=== PATIENT | female | born 1990 | race American Indian/Alaskan Native ===

== ENCOUNTER 2018-08-31 15:07 | Inpatient (IN) | payer OTHER ==
[~2018-08-31 15:07] MED LIST: Bupivacaine 0.25% 10 ML SDV ONE
[2018-08-31] MEDS ORDERED: Ampicillin 2 GM in Sodium Chloride 0.9% 100 ML IV ONE (15:26)
[2018-08-31] MEDS ORDERED: Ondansetron 4 MG/2 ML SDV IVPUSH PRN (15:26)
[2018-08-31] MEDS ORDERED: Nalbuphine 10 MG/1 ML Vial IVPUSH PRN (15:26)
[2018-08-31] MEDS ORDERED: Sodium Chloride 0.9% 10 ML Syringe FLUSH PRN (15:26)
[2018-08-31] MEDS ORDERED: Ampicillin 2 GM AdvVial IV ONE (15:26)
[2018-08-31] MEDS ORDERED: Lactated Ringers 1,000 ML ONE (15:26)
[2018-08-31] MEDS: Lactated Ringers 1,000 ML IV SCH ×2 (15:27→16:37)
[2018-08-31] MEDS ORDERED: Oxytocin/Lactated Ringers 10 UNIT/1,000 ML BAG IV SCH (15:30)
--- NOTE | 2018-08-31 15:39 | PCM.LDHP ---
L&D History of Present Illness - General Date of Service: 08/31/18 Admit Problem/Dx: Patient Status Order with Admit Dx/Problem 08/31/18 15:26 Patient Status [ADT] Routine Admission Diagnosis/Problem Admission Diagnosis/Problem Normal labor Source of Information: Patient History Limitations: Reports: No Limitations - History of Present Illness Introduction:: Patient is a 28 y/o at unknown gestational age, LMP sometime in November, who presents today in labor. Patient states she has had no care this . No ultrasounds or lab work done. Contractions started sometime today, she's uncertain when. No LOF or VB. Last was an uncomplicated at term. - Related Data Allergies/Adverse Reactions: Allergies Allergy/AdvReac Type Severity Reaction Status Date / Time No Known Allergies Allergy Verified 08/31/18 15:38 Home Medications: Home Meds Vit with Ca/FA/Iron [ Plus Iron] 1 each PO DAILY #100 tablet [Rx] Past Medical History [employer]ECUTIVE [employer]URITY History: Reports: , Spontaneous : 3 Para: 1 LMP (Approximate): - Past Surgical History GI Surgical History: Reports: Cholecystectomy Social & Family History - Tobacco Use Smoking Status *Q: Current Every Day Smoker - Alcohol Use Alcohol Use History: No - Recreational Drug Use Recreational Drug Type: Reports: Methamphetamine H&P Review of Systems - Review of Systems: Review Of Systems: See Below General: Reports: No Symptoms Pulmonary: Reports: No Symptoms Cardiovascular: Reports: No Symptoms Gastrointestinal: Reports: Abdominal Pain Genitourinary: Reports: No Symptoms Musculoskeletal: Reports: No Symptoms Psychiatric: Reports: No Symptoms Neurological: Reports: No Symptoms L&D Exam - Exam Exam: See Below - OB Specific Contraction Intensity: Moderate to Strong Movement: Active Heart Tones: Present Heart Tones per Min: 135 Heart Rate (FHR) Variability: Moderate (6-25 bmp) Presentation: Vertex - Castaneda Score Castaneda Score Cervix Position: Posterior Castaneda Score Consistency: Soft Castaneda Score Effacement: >80% Castaneda Score Dilation: > 5 cm Castaneda Score Infant's Station: -2 Catsaneda Score Total: 9 - Exam General: Alert, Oriented, Cooperative Lungs: Clear to Auscultation, Normal Respiratory Effort Cardiovascular: Regular Rate, Regular Rhythm GI/Abdominal Exam: Soft, Non-Tender Genitourinary: Normal external exam Extremities: Normal Inspection Skin: Warm, Dry, Intact - Problem List (1) Currently in third trimester with unknown gestational age SNOMED Code(s): 631026681, 201550449 ICD Code: Z34.93 - ENCNTR FOR SUPRVSN OF NORMAL PREG, UNSP, THIRD TRIMESTER Status: Acute Current Visit: Yes (2) No care in current SNOMED Code(s): 404753661 ICD Code: O09.30 - SUPRVSN OF PREG W INSUFFICIENT ANTENAT CARE, UNSP TRIMESTER Status: Acute Current Visit: Yes Qualifiers: Trimester: third trimester Qualified Code(s): O09.33 - Supervision of with insufficient care, third trimester (3) History of drug use SNOMED Code(s): 589330755 ICD Code: Z87.898 - PERSONAL HISTORY OF OTHER SPECIFIED CONDITIONS Status: Acute Current Visit: Yes Problem List Initiated/Reviewed/Updated: Yes Orders Last 24hrs: Active Orders 24 hr Category Date Time Status Patient Status [ADT] Routine ADT 08/31/18 15:26 Active Activity as Tolerated [RC] PFP Care 08/31/18 15:26 Active Communication Order [RC] ASDIRECTED Care 08/31/18 15:26 Active Heart Tones [RC] ASDIRECTED Care 08/31/18 15:26 Active Non Stress Test [RC] PER UNIT ROUTINE Care 08/31/18 15:26 Active Notify Provider [RC] PFP Care 08/31/18 15:26 Active Notify Provider [RC] PRN Care 08/31/18 15:26 Active Peripheral IV Care [RC] . DIRECTED Care 08/31/18 15:26 Active Vital Signs [RC] PER UNIT ROUTINE Care 08/31/18 15:26 Active Regular Diet [DIET] Diet 08/31/18 Lunch Active CBC W/O DIFF,HEMOGRAM [HEME] Routine Lab 08/31/18 15:26 Ordered DRUG SCREEN, URINE REFLEX [URCHEM] Routine Lab 08/31/18 15:26 Ordered GROUP B STREP BY PCR [MOLEC] Routine Lab 08/31/18 15:28 Ordered HEPATITIS B SURFACE AG [CHEM] Routine Lab 08/31/18 15:26 Ordered HEPATITIS C ANTIBODY [CHEM] Routine Lab 08/31/18 15:26 Ordered HIV RAPID SCREEN RLFX COMFIRM [CHEM] Routine Lab 08/31/18 15:26 Ordered RAPID PLASMA REAGIN,RPR [CHEM] Routine Lab 08/31/18 15:26 Ordered RUBELLA ANTIBODY IGG [CHEM] Routine Lab 08/31/18 15:26 Ordered TYPE AND SCREEN [BBK] Routine Lab 08/31/18 15:26 Ordered Ampicillin 1 gm Med 08/31/18 15:30 Ordered Sodium Chloride 0.9% [Normal Saline] 100 ml IV Q4H Ampicillin 2 gm Med 08/31/18 15:26 Active Sodium Chloride 0.9% [Normal Saline] 100 ml IV ONETIME Lactated Ringers [Ringers, Lactated] 1,000 ml Med 08/31/18 15:30 Active IV ASDIRECTED Nalbuphine [Nubain] Med 08/31/18 15:26 Ordered 10 mg IVPUSH Q2H PRN Ondansetron [Zofran] Med 08/31/18 15:26 Ordered 4 mg IVPUSH Q4H PRN Oxytocin/Lactated Ringers [Pitocin in LR 10 Units/1,000 Med 08/31/18 15:30 Active ML] 10 unit in 1,000 ml IV .CONTINUOUS Sodium Chloride 0.9% [Saline Flush] Med 08/31/18 15:26 Ordered 10 ml FLUSH ASDIRECTED PRN Electronic Heart Tones Ext w TOCO [WOMSER] Oth 08/31/18 15:26 Ordered Routine Electronic Heart Tones Internal [WOMSER] Per Unit Oth 08/31/18 15:26 Ordered Routine Peripheral IV Insertion Adult [OM.PC] Routine Oth 08/31/18 15:26 Ordered Resuscitation Status Routine Resus Stat 08/31/18 15:26 Ordered Medication Orders Ampicillin Sodium 2 gm/ Sodium (Chloride) 100 mls @ 200 mls/hr IV ONETIME ONE Stop: 08/31/18 15:55 Ampicillin Sodium 1 gm/ Sodium (Chloride) 100 mls @ 200 mls/hr IV Q4H UMAIR Lactated Ringer's (Ringers, Lactated) 1,000 mls @ 100 mls/hr IV ASDIRECTED UMAIR Oxytocin/Lactated Ringer's (Pitocin In Lr 10 Units/1,000 Ml) 10 unit in 1,000 mls @ 500 mls/hr IV .CONTINUOUS UMAIR Nalbuphine HCl (Nubain) 10 mg IVPUSH Q2H PRN PRN Reason: Pain Ondansetron HCl (Zofran) 4 mg IVPUSH Q4H PRN PRN Reason: Nausea/Vomiting Sodium Chloride (Saline Flush) 10 ml FLUSH ASDIRECTED PRN PRN Reason: Keep Vein Open Assessment/Plan Comment:: 28 y/o at unknown gestational age, but estimated to be full term by last period in November, presents in labor * New ob labs to be done * GBS to be done. Given uncertain gestational age will start Ampicillin * Patient states she "doesn't really" have a history of drug use, but per last delivery notes has a reported history of methamphetamine use. UDS to be done. * Social Work consult pending * US to evaluate for previa/rough estimation of due date * Pain management per patient preference * Anticipate
[2018-08-31] MEDS ORDERED: fentaNYL 100 MCG/2 ML SDV IVPUSH ONE (16:07)
[2018-08-31] MEDS ORDERED: Bupivacaine/fentaNYL/NS 100 ML Bag EPIDUR SCH (16:15)
--- NOTE | 2018-08-31 16:41 | US ---
Limited obstetrical ultrasound: Multiple real-time images were obtained transabdominally. Comparison: No previous exam. Dates: Current ultrasound: [facility] 09/27/18, gestational age 36 weeks 1 day presentation: Cephalic Placenta: Right lateral with no findings of placenta previa Amniotic fluid: SUYAPA 7.1 cm Measurements: BPD: 9.04 cm - 36 weeks 5 days Head circumference: 31.59 cm - 35 weeks 4 days Abdominal circumference: 32.51 cm - 36 weeks 3 days Femur length: 6.99 cm - 35 weeks 6 days Estimated weight: 135 bpm Cervical length: Not seen due to baby position, not measured Impression: 1. Single intrauterine fetus currently cephalic in presentation. Dates as noted above. 2. No complicating process is identified by ultrasound at this time. Diagnostic code #1
--- NOTE | 2018-08-31 17:03 | PCM.PREANE ---
Preanesthetic Assessment - Anesthesia/Transfusion/Family Hx Anesthesia History: Prior Anesthesia Without Reaction Family History of Anesthesia Reaction: No Transfusion History: No Prior Transfusion(s) Intubation History: Unknown - Review of Systems General: No Symptoms Pulmonary: No Symptoms, Cough Cardiovascular: No Symptoms Gastrointestinal: No Symptoms Neurological: No Symptoms Other: Reports: None - Physical Assessment O2 Sat by Pulse Oximetry: 98 Respiratory Rate: 12 Vital Signs: Last Vital Signs Temp 36.4 C 08/31/18 15:26 Pulse 68 08/31/18 15:26 Resp 12 08/31/18 15:26 BP 124/69 08/31/18 15:26 Pulse Ox 98 08/31/18 15:26 Height: 1.7 m Weight: 83.915 kg Mental Status: Alert & Oriented x3 Airway Class: Mallampati = 1 Dentition: Reports: Normal Dentition ROM/Head Extension: Full Lungs: Clear to Auscultation, Normal Respiratory Effort Cardiovascular: Regular Rate, Regular Rhythm - Lab Values: Laboratory Last Values WBC 12.27 K/mm3 (3.98-10.04) H 08/31/18 15:38 RBC 4.75 M/mm3 (3.98-5.22) 08/31/18 15:38 Hgb 12.7 gm/L (11.2-15.7) D 08/31/18 15:38 Hct 39.4 % (34.1-44.9) 08/31/18 15:38 MCV 82.9 fl (79.4-94.8) 08/31/18 15:38 MCH 26.7 pg (25.6-32.2) 08/31/18 15:38 MCHC 32.2 g/dl (32.2-35.5) 08/31/18 15:38 RDW Std Deviation 44.7 fL (36.4-46.3) 08/31/18 15:38 Plt Count 352 K/mm3 (182-369) D 08/31/18 15:38 MPV 9.5 fl (9.4-12.3) 08/31/18 15:38 Hepatitis C Antibody Negative (NEGATIVE) 08/31/18 15:38 HIV-1 Ab Rapid Screen Negative (NEGATIVE) 08/31/18 15:38 - Allergies Allergies/Adverse Reactions: Allergies Allergy/AdvReac Type Severity Reaction Status Date / Time No Known Allergies Allergy Verified 08/31/18 15:38 - Anesthesia Plan Pre-Op Medication Ordered: None - Acknowledgements Anesthesia Type Planned: Epidural Pt an Appropriate Candidate for the Planned Anesthesia: Yes Alternatives and Risks of Anesthesia Discussed w Pt/Guardian: Yes Pt/Guardian Understands and Agrees with Anesthesia Plan: Yes PreAnesthesia Questionnaire [employer] REFINING [employer]ER History: Reports: , Spontaneous Other OB/BYN History: no care, poor historian - Past Surgical History GI Surgical History: Reports: Cholecystectomy - SUBSTANCE USE Smoking Status *Q: Current Every Day Smoker Tobacco Use Within Last Twelve Months: Cigarettes Second Hand Smoke Exposure: Yes Recreational Drug Use History: Yes Recreational Drug Type: Reports: Methamphetamine - HOME MEDS Home Medications: Home Meds Vit with Ca/FA/Iron [ Plus Iron] 1 each PO DAILY #100 tablet [Rx] - CURRENT (IN HOUSE) MEDS Current Meds: Current Medications Fentanyl/Bupivacaine HCl (Fentanyl/Bupivacaine/Ns 2 Mcg-0.125% 100 Ml) 100 ml EPIDUR ASDIRECTED PENDING SALE TO [facility] Ampicillin Sodium 1 gm/ Sodium (Chloride) 100 mls @ 200 mls/hr IV Q4H UMAIR Lactated Ringer's (Ringers, Lactated) 1,000 mls @ 100 mls/hr IV ASDIRECTED PENDING SALE TO [facility] Last Admin: 08/31/18 16:37 Dose: 100 mls/hr Oxytocin/Lactated Ringer's (Pitocin In Lr 10 Units/1,000 Ml) 10 unit in 1,000 mls @ 500 mls/hr IV .CONTINUOUS PENDING SALE TO [facility] Nalbuphine HCl (Nubain) 10 mg IVPUSH Q2H PRN PRN Reason: Pain Ondansetron HCl (Zofran) 4 mg IVPUSH Q4H PRN PRN Reason: Nausea/Vomiting Sodium Chloride (Saline Flush) 10 ml FLUSH ASDIRECTED PRN PRN Reason: Keep Vein Open Discontinued Medications Ampicillin Sodium (Ampicillin) Confirm Administered Dose 2 gm IV .STK-MED ONE Stop: 08/31/18 15:27 Last Admin: 08/31/18 15:39 Dose: Not Given Fentanyl (Sublimaze) 100 mcg IVPUSH ONETIME ONE Stop: 08/31/18 16:08 Ampicillin Sodium 2 gm/ Sodium (Chloride) 100 mls @ 200 mls/hr IV ONETIME ONE Stop: 08/31/18 15:55 Last Admin: 08/31/18 15:27 Dose: 200 mls/hr Lactated Ringer's (Ringers, Lactated) Confirm Administered Dose 1,000 mls @ as directed .ROUTE .STK-MED ONE Stop: 08/31/18 15:27 Last Admin: 08/31/18 15:39 Dose: Not Given
--- NOTE | 2018-08-31 17:04 | PCM.POSTAN ---
POST ANESTHESIA ASSESSMENT - MENTAL STATUS Mental Status: Alert - RESPIRATORY Respiratory Status: Respiratory Rate WNL, Airway Patent - CARDIOVASCULAR CV Status: Pulse Rate WNL - GASTROINTESTINAL GI Status: No Symptoms - POST OP HYDRATION Hydration Status: Adequate & Stable
[2018-08-31] MEDS ORDERED: Ampicillin 1 GM in Sodium Chloride 0.9% 100 ML IV SCH (18:00)
--- NOTE | 2018-08-31 18:05 | PCM.DEL ---
L & D Note - General Info Date of Service: 08/31/18 - Delivery Note Labor: Spontaneous Delivery Outcome: Livebirth Delivery Method: Spontaneous Vaginal Delivery-Single Delivery Mode: Spontaneous Presentation: Right Occiput Anterior (SUNSHINE) Nuchal Cord: None Anesthesia Type: Epidural Amniotic Fluid Description: Clear Episiotomy Type: None Laceration: Labial Suture type: Vicryl Suture size: 4-0 Placenta: Intact, Spontaneous Cord: 3 Vessels Estimated Blood Loss: 200 [place]: Bulb Syringe, Stimulated, Warmed, [place] Used, Warmer Used Delivery Comments (Free Text/Narrative):: Patient found to be complete and began pushing. With maternal pushing effort head delivered from an SUNSHINE presentation. No nuchal cord present. With gentle downward traction the shoulders and body delivered. placed on maternal abdomen. Cord clamped and cut. Cord blood obtained. Placenta allowed time to separate and expelled intact. Inspection showed small left sided labia tear which was repaired with a running 4-0 vicryl - General Info Date of Service: 08/31/18 - Patient Data Vitals - Most Recent: Last Vital Signs Temp 36.4 C 08/31/18 15:26 Pulse 68 08/31/18 15:26 Resp 12 08/31/18 17:03 BP 124/69 08/31/18 15:26 Pulse Ox 98 08/31/18 17:03 Weight - Most Recent: 83.915 kg I&O - Last 24 Hours: Intake & Output 08/31/18 08/31/18 08/31/18 06:59 14:59 22:59 Intake Total 1500 Balance 1500 Lab Results Last 24 Hours: Laboratory Results - last 24 hr 08/31/18 08/31/18 08/31/18 Range/Units 15:26 15:38 15:38 WBC 12.27 H (3.98-10.04) K/mm3 RBC 4.75 (3.98-5.22) M/mm3 Hgb 12.7 D (11.2-15.7) gm/L Hct 39.4 (34.1-44.9) % MCV 82.9 (79.4-94.8) fl MCH 26.7 (25.6-32.2) pg MCHC 32.2 (32.2-35.5) g/dl RDW Std Deviation 44.7 (36.4-46.3) fL Plt Count 352 D (182-369) K/mm3 MPV 9.5 (9.4-12.3) fl Urine Opiates Screen Negative (XCJLER=996) Ur Buprenorphine Scrn Negative (CUTOFF=10) Ur Oxycodone Screen Negative (MEK6UI=309) Urine Methadone Screen Negative (JDUUIT=986) Ur Propoxyphene Screen Negative (JZJRTU=222) Ur Barbiturates Screen Negative (LMPAFP=465) Ur Tricyclics Screen Negative (RGHJUY=182) Ur Phencyclidine Scrn Negative (CUTOFF=25) Ur Amphetamine Screen Presumptive positive H (RVEHVY=253) U Methamphetamines Scrn Presumptive positive H (ORVUOM=688) U Benzodiazepines Scrn Negative (ZTAEXS=584) U Cocaine Metab Screen Negative (QJQTSI=712) U Marijuana (THC) Screen Presumptive positive H (CUTOFF=50) Hepatitis C Antibody Negative (NEGATIVE) HIV-1 Ab Rapid Screen Negative (NEGATIVE) Med Orders - Current: Current Medications Fentanyl/Bupivacaine HCl (Fentanyl/Bupivacaine/Ns 2 Mcg-0.125% 100 Ml) 100 ml EPIDUR ASDIRECTED UMAIR Last Admin: 08/31/18 17:45 Dose: 100 ml Ampicillin Sodium 1 gm/ Sodium (Chloride) 100 mls @ 200 mls/hr IV Q4H UMAIR Lactated Ringer's (Ringers, Lactated) 1,000 mls @ 100 mls/hr IV ASDIRECTED UMAIR Last Admin: 08/31/18 16:37 Dose: 100 mls/hr Oxytocin/Lactated Ringer's (Pitocin In Lr 10 Units/1,000 Ml) 10 unit in 1,000 mls @ 500 mls/hr IV .CONTINUOUS UMAIR Last Admin: 08/31/18 17:48 Dose: 500 mls/hr Nalbuphine HCl (Nubain) 10 mg IVPUSH Q2H PRN PRN Reason: Pain Ondansetron HCl (Zofran) 4 mg IVPUSH Q4H PRN PRN Reason: Nausea/Vomiting Sodium Chloride (Saline Flush) 10 ml FLUSH ASDIRECTED PRN PRN Reason: Keep Vein Open Discontinued Medications Ampicillin Sodium (Ampicillin) Confirm Administered Dose 2 gm IV .STK-MED ONE Stop: 08/31/18 15:27 Last Admin: 08/31/18 15:39 Dose: Not Given Fentanyl (Sublimaze) 100 mcg IVPUSH ONETIME ONE Stop: 08/31/18 16:08 Last Admin: 08/31/18 17:45 Dose: 100 mcg Ampicillin Sodium 2 gm/ Sodium (Chloride) 100 mls @ 200 mls/hr IV ONETIME ONE Stop: 08/31/18 15:55 Last Admin: 08/31/18 15:27 Dose: 200 mls/hr Lactated Ringer's (Ringers, Lactated) Confirm Administered Dose 1,000 mls @ as directed .ROUTE .STK-MED ONE Stop: 08/31/18 15:27 Last Admin: 08/31/18 15:39 Dose: Not Given - Problem List & Annotations (1) Currently in third trimester with unknown gestational age SNOMED Code(s): 386565250, 545180513 Code(s): Z34.93 - ENCNTR FOR SUPRVSN OF NORMAL PREG, UNSP, THIRD TRIMESTER Status: Acute Current Visit: Yes (2) No care in current SNOMED Code(s): 889999707 Code(s): O09.30 - SUPRVSN OF PREG W INSUFFICIENT ANTENAT CARE, UNSP TRIMESTER Status: Acute Current Visit: Yes Qualifiers: Trimester: third trimester Qualified Code(s): O09.33 - Supervision of with insufficient care, third trimester (3) History of drug use SNOMED Code(s): 012568086 Code(s): Z87.898 - PERSONAL HISTORY OF OTHER SPECIFIED CONDITIONS Status: Acute Current Visit: Yes (4) Vaginal delivery SNOMED Code(s): 870233994 Code(s): O80 - ENCOUNTER FOR FULL-TERM UNCOMPLICATED DELIVERY Status: Acute Current Visit: Yes - Problem List Review Problem List Initiated/Reviewed/Updated: Yes - My Orders Last 24 Hours: My Active Orders 08/31/18 15:26 Patient Status [ADT] Routine Activity as Tolerated [RC] PFP Communication Order [RC] ASDIRECTED Heart Tones [RC] ASDIRECTED Non Stress Test [RC] PER UNIT ROUTINE Notify Provider [RC] PFP Notify Provider [RC] PRN Peripheral IV Care [RC] . DIRECTED Vital Signs [RC] PER UNIT ROUTINE AMPHET/METH EXT CONF (GCMS) Routine AMPHETAMINES, CONF, UR Routine CANNABINOID (THC) CONFIRM, UR Routine Nalbuphine [Nubain] 10 mg IVPUSH Q2H PRN Ondansetron [Zofran] 4 mg IVPUSH Q4H PRN Sodium Chloride 0.9% [Saline Flush] 10 ml FLUSH ASDIRECTED PRN Electronic Heart Tones Ext w TOCO [WOMSER] Routine Electronic Heart Tones Internal [WOMSER] Per Unit Routine Peripheral IV Insertion Adult [OM.PC] Routine Resuscitation Status Routine 08/31/18 15:30 GROUP B STREP BY PCR [MOLEC] Routine Lactated Ringers [Ringers, Lactated] 1,000 ml IV ASDIRECTED Oxytocin/Lactated Ringers [Pitocin in LR 10 Units/1,000 ML] 10 unit in 1,000 ml IV .CONTINUOUS 08/31/18 15:38 HEPATITIS B SURFACE AG [CHEM] Routine RAPID PLASMA REAGIN,RPR [CHEM] Routine RUBELLA ANTIBODY IGG [CHEM] Routine TYPE AND SCREEN [BBK] Routine 08/31/18 15:57 Consult to Case Management/Life Science Research Assistant [CONS] Routine 08/31/18 18:00 Ampicillin 1 gm Sodium Chloride 0.9% [Normal Saline] 100 ml IV Q4H 08/31/18 Lunch Regular Diet [DIET] - Assessment Assessment:: 28 y/o G3 now P2 PPD#0 from - Plan Plan:: * Routine cares * Breast feeding * UDS positive, SW to be involved * Discharge home in 1-2 days
[2018-08-31] MEDS ORDERED: Lanolin 100% Cream 7 GM Tube TOP PRN (18:32)
[2018-08-31] MEDS ORDERED: Benzocaine/Menthol 20%-0.5% Spray 56 GM Canister TOP PRN (18:32)
[2018-08-31] MEDS ORDERED: Acetaminophen 325 MG Tab PO PRN (18:32)
[2018-08-31] MEDS ORDERED: Witch Hazel Medicated Pads 40/Jar TOP PRN (18:32)
[2018-08-31] MEDS ORDERED: Docusate Sodium 100 MG Cap PO PRN (18:32)
[2018-08-31] MEDS: Ibuprofen 600 MG Tab PO PRN (23:59)
--- NOTE | 2018-09-01 07:41 | PCM48HPAN ---
Post Anesthesia Note - EVALUATION WITHIN 48HRS OF ANESTHETIC Vital Signs in Normal Range: Yes Patient Participated in Evaluation: Yes Respiratory Function Stable: Yes Airway Patent: Yes Cardiovascular Function Stable: Yes Hydration Status Stable: Yes Pain Control Satisfactory: Yes Nausea and Vomiting Control Satisfactory: Yes Mental Status Recovered: Yes Pulse Rate: 64 Resp Rate: 16 Temperature: 36.7 C Blood Pressure: 101/67
--- NOTE | 2018-09-01 07:56 | PCM.PNPP ---
- General Info Date of Service: 09/01/18 Functional Status: Reports: Pain Controlled, Tolerating Diet, Ambulating, Urinating - Review of Systems General: Reports: No Symptoms Pulmonary: Reports: No Symptoms Cardiovascular: Reports: No Symptoms Gastrointestinal: Reports: No Symptoms Genitourinary: Reports: No Symptoms Musculoskeletal: Reports: No Symptoms Neurological: Reports: No Symptoms - Patient Data Vital Signs - Most Recent: Last Vital Signs Temp 36.7 C 09/01/18 07:41 Pulse 64 09/01/18 07:41 Resp 16 09/01/18 07:41 BP 101/67 09/01/18 07:41 Pulse Ox 98 09/01/18 02:37 Weight - Most Recent: 83.915 kg I&O - Last 24 Hours: Intake & Output 08/31/18 09/01/18 09/01/18 22:59 06:59 14:59 Intake Total 1740 Balance 1740 Lab Results - Last 24 Hours: Laboratory Results - last 24 hr 08/31/18 08/31/18 08/31/18 Range/Units 15:26 15:38 15:38 WBC 12.27 H (3.98-10.04) K/mm3 RBC 4.75 (3.98-5.22) M/mm3 Hgb 12.7 D (11.2-15.7) gm/L Hct 39.4 (34.1-44.9) % MCV 82.9 (79.4-94.8) fl MCH 26.7 (25.6-32.2) pg MCHC 32.2 (32.2-35.5) g/dl RDW Std Deviation 44.7 (36.4-46.3) fL Plt Count 352 D (182-369) K/mm3 MPV 9.5 (9.4-12.3) fl Urine Opiates Screen Negative (UPPLIX=628) Ur Buprenorphine Scrn Negative (CUTOFF=10) Ur Oxycodone Screen Negative (SQQ3QY=097) Urine Methadone Screen Negative (ZPOVFX=713) Ur Propoxyphene Screen Negative (KTDVZI=916) Ur Barbiturates Screen Negative (QDMRCX=414) Ur Tricyclics Screen Negative (LKJKLJ=810) Ur Phencyclidine Scrn Negative (CUTOFF=25) Ur Amphetamine Screen Presumptive positive H (VCUGRE=458) U Methamphetamines Scrn Presumptive positive H (ZAEGCT=573) U Benzodiazepines Scrn Negative (ZFSSSV=514) U Cocaine Metab Screen Negative (SWQNQF=901) U Marijuana (THC) Screen Presumptive positive H (CUTOFF=50) Hepatitis C Antibody Negative (NEGATIVE) HIV-1 Ab Rapid Screen Negative (NEGATIVE) Blood Type Gel Antibody Screen 08/31/18 Range/Units 15:38 WBC (3.98-10.04) K/mm3 RBC (3.98-5.22) M/mm3 Hgb (11.2-15.7) gm/L Hct (34.1-44.9) % MCV (79.4-94.8) fl MCH (25.6-32.2) pg MCHC (32.2-35.5) g/dl RDW Std Deviation (36.4-46.3) fL Plt Count (182-369) K/mm3 MPV (9.4-12.3) fl Urine Opiates Screen (AZXSFC=454) Ur Buprenorphine Scrn (CUTOFF=10) Ur Oxycodone Screen (DIT5XC=045) Urine Methadone Screen (ZAPABL=228) Ur Propoxyphene Screen (QULNRE=555) Ur Barbiturates Screen (PMUAIF=363) Ur Tricyclics Screen (QWGBLF=666) Ur Phencyclidine Scrn (CUTOFF=25) Ur Amphetamine Screen (NLXJLD=577) U Methamphetamines Scrn (FNTQIH=524) U Benzodiazepines Scrn (CLCLNB=551) U Cocaine Metab Screen (WCKLSM=599) U Marijuana (THC) Screen (CUTOFF=50) Hepatitis C Antibody (NEGATIVE) HIV-1 Ab Rapid Screen (NEGATIVE) Blood Type A POSITIVE Gel Antibody Screen Negative Med Orders - Current: Current Medications Acetaminophen (Tylenol) 650 mg PO Q4H PRN PRN Reason: mild pain or fever Benzocaine/Menthol (Dermoplast Pain Relief [place]) 0 gm TOP ASDIRECTED PRN PRN Reason: Perineal Comfort Measure Last Admin: 09/01/18 00:00 Dose: 1 canister Docusate Sodium (Colace) 100 mg PO BID PRN PRN Reason: Constipation Emollient Ointment (Lansinoh Hpa) 0 gm TOP ASDIRECTED PRN PRN Reason: Sore Nipples Ibuprofen (Motrin) 600 mg PO Q6H PRN PRN Reason: Mild pain or fever Last Admin: 08/31/18 23:59 Dose: 600 mg Witch Sona (Tucks) 1 pad TOP ASDIRECTED PRN PRN Reason: Perineal Comfort Measure Last Admin: 09/01/18 00:00 Dose: 1 container Discontinued Medications Ampicillin Sodium (Ampicillin) Confirm Administered Dose 2 gm IV .STK-MED ONE Stop: 08/31/18 15:27 Last Admin: 08/31/18 15:39 Dose: Not Given Fentanyl (Sublimaze) 100 mcg IVPUSH ONETIME ONE Stop: 08/31/18 16:08 Last Admin: 08/31/18 17:45 Dose: 100 mcg Fentanyl/Bupivacaine HCl (Fentanyl/Bupivacaine/Ns 2 Mcg-0.125% 100 Ml) 100 ml EPIDUR ASDIRECTED [facility] Last Admin: 08/31/18 17:45 Dose: 100 ml Ampicillin Sodium 2 gm/ Sodium (Chloride) 100 mls @ 200 mls/hr IV ONETIME ONE Stop: 08/31/18 15:55 Last Admin: 08/31/18 15:27 Dose: 200 mls/hr Ampicillin Sodium 1 gm/ Sodium (Chloride) 100 mls @ 200 mls/hr IV Q4H [facility] Last Admin: 08/31/18 19:14 Dose: Not Given Lactated Ringer's (Ringers, Lactated) 1,000 mls @ 100 mls/hr IV ASDIRECTED [facility] Last Admin: 08/31/18 16:37 Dose: 100 mls/hr Oxytocin/Lactated Ringer's (Pitocin In Lr 10 Units/1,000 Ml) 10 unit in 1,000 mls @ 500 mls/hr IV .CONTINUOUS [facility] Last Admin: 08/31/18 17:48 Dose: 500 mls/hr Lactated Ringer's (Ringers, Lactated) Confirm Administered Dose 1,000 mls @ as directed .ROUTE .STK-MED ONE Stop: 08/31/18 15:27 Last Admin: 08/31/18 15:39 Dose: Not Given Nalbuphine HCl (Nubain) 10 mg IVPUSH Q2H PRN PRN Reason: Pain Ondansetron HCl (Zofran) 4 mg IVPUSH Q4H PRN PRN Reason: Nausea/Vomiting Sodium Chloride (Saline Flush) 10 ml FLUSH ASDIRECTED PRN PRN Reason: Keep Vein Open - Infant Interaction Infant Disposition, : [place] in Room with Family Interaction: Holding Infant Feeding: Bottle Fed Support Person: Sister - Recovery Exam Fundal Tone: Firm Fundal Level: At Umbilicus Fundal Placement: Left Lochia Amount: Small Lochia Color: Rubra/Red Episiotomy/Laceration: Approximated Bladder Status: Voiding - Exam General: Alert, Oriented, Cooperative GI/Abdominal Exam: Soft, Non-Tender Extremities: Normal Inspection Skin: Warm, Dry, Intact - Problem List & Annotations (1) Currently in third trimester with unknown gestational age SNOMED Code(s): 450042093, 878236258 Code(s): Z34.93 - ENCNTR FOR SUPRVSN OF NORMAL PREG, UNSP, THIRD TRIMESTER Status: Acute Current Visit: Yes (2) No care in current SNOMED Code(s): 579747553 Code(s): O09.30 - SUPRVSN OF PREG W INSUFFICIENT ANTENAT CARE, UNSP TRIMESTER Status: Acute Current Visit: Yes Qualifiers: Trimester: third trimester Qualified Code(s): O09.33 - Supervision of with insufficient care, third trimester (3) History of drug use SNOMED Code(s): 863248139 Code(s): Z87.898 - PERSONAL HISTORY OF OTHER SPECIFIED CONDITIONS Status: Acute Current Visit: Yes (4) Vaginal delivery SNOMED Code(s): 264668367 Code(s): O80 - ENCOUNTER FOR FULL-TERM UNCOMPLICATED DELIVERY Status: Acute Current Visit: Yes - Problem List Review Problem List Initiated/Reviewed/Updated: Yes - My Orders Last 24 Hours: My Active Orders 08/31/18 15:26 Heart Tones [RC] ASDIRECTED AMPHET/METH EXT CONF (GCMS) Routine AMPHETAMINES, CONF, UR Routine CANNABINOID (THC) CONFIRM, UR Routine Resuscitation Status Routine 08/31/18 15:30 GROUP B STREP BY PCR [MOLEC] Routine 08/31/18 15:38 HEPATITIS B SURFACE AG [CHEM] Routine RAPID PLASMA REAGIN,RPR [CHEM] Routine RUBELLA ANTIBODY IGG [CHEM] Routine 08/31/18 18:32 Activity as Tolerated [RC] PER UNIT ROUTINE Vital Signs [RC] 03,09,15,21 Acetaminophen [Tylenol] 650 mg PO Q4H PRN Benzocaine/Menthol [Dermoplast Pain Relief [place]] See Dose Instructions TOP ASDIRECTED PRN Docusate Sodium [Colace] 100 mg PO BID PRN Ibuprofen [Motrin] 600 mg PO Q6H PRN Lanolin [Lansinoh HPA] See Dose Instructions TOP ASDIRECTED PRN Witch Sona [Tucks] 1 pad TOP ASDIRECTED PRN Assess Lochia [WOMSER] Per Unit Routine Assess Uterine Involution [WOMSER] Per Unit Routine Breast Pump [WOMSER] Per Unit Routine Heat Therapy [OM.PC] PRN Ice Therapy [OM.PC] Per Unit Routine Medication Administration Instruction [OM.PC] Routine Perineal Care [OM.PC] Per Unit Routine Peripheral IV Discontinue [OM.PC] Routine Sitz Bath [OM.PC] Per Unit Routine 08/31/18 Dinner Regular Diet [DIET] 09/01/18 18:32 Heat Therapy [OM.PC] PRN - Assessment Assessment:: 28 y/o G3 now P2 PPD#1 from - Plan Plan:: * Routine cares * Now bottle feeding * UDS positive, SW to be involved * Discharge home tomorrow
[2018-09-01] MEDS: Ibuprofen 600 MG Tab PO PRN ×3 (09:11→22:22)
--- NOTE | 2018-09-02 09:02 | PCM.PNPP ---
- General Info Date of Service: 09/02/18 Functional Status: Reports: Pain Controlled, Tolerating Diet, Ambulating, Urinating - Review of Systems General: Reports: No Symptoms Pulmonary: Reports: No Symptoms Cardiovascular: Reports: No Symptoms Gastrointestinal: Reports: No Symptoms Genitourinary: Reports: No Symptoms Musculoskeletal: Reports: No Symptoms Neurological: Reports: No Symptoms - Patient Data Vital Signs - Most Recent: Last Vital Signs Temp 36.5 C 09/02/18 03:00 Pulse 44 L 09/02/18 03:00 Resp 14 09/02/18 03:00 BP 95/54 L 09/02/18 03:00 Pulse Ox 97 09/02/18 03:00 Weight - Most Recent: 83.915 kg I&O - Last 24 Hours: Intake & Output 09/01/18 09/02/18 09/02/18 22:59 06:59 14:59 Intake Total 180 Balance 180 Lab Results - Last 24 Hours: Laboratory Results - last 24 hr 08/31/18 Range/Units 15:30 Group B Strep (PCR) Negative (NEGATIVE) Med Orders - Current: Current Medications Acetaminophen (Tylenol) 650 mg PO Q4H PRN PRN Reason: mild pain or fever Benzocaine/Menthol (Dermoplast Pain Relief [place]) 0 gm TOP ASDIRECTED PRN PRN Reason: Perineal Comfort Measure Last Admin: 09/01/18 00:00 Dose: 1 canister Docusate Sodium (Colace) 100 mg PO BID PRN PRN Reason: Constipation Emollient Ointment (Lansinoh Hpa) 0 gm TOP ASDIRECTED PRN PRN Reason: Sore Nipples Ibuprofen (Motrin) 600 mg PO Q6H PRN PRN Reason: Mild pain or fever Last Admin: 09/01/18 22:22 Dose: 600 mg Witch Sona (Tucks) 1 pad TOP ASDIRECTED PRN PRN Reason: Perineal Comfort Measure Last Admin: 09/01/18 00:00 Dose: 1 container Discontinued Medications Ampicillin Sodium (Ampicillin) Confirm Administered Dose 2 gm IV .STK-MED ONE Stop: 08/31/18 15:27 Last Admin: 08/31/18 15:39 Dose: Not Given Fentanyl (Sublimaze) 100 mcg IVPUSH ONETIME ONE Stop: 08/31/18 16:08 Last Admin: 08/31/18 17:45 Dose: 100 mcg Fentanyl/Bupivacaine HCl (Fentanyl/Bupivacaine/Ns 2 Mcg-0.125% 100 Ml) 100 ml EPIDUR ASDIRECTED [facility] Last Admin: 08/31/18 17:45 Dose: 100 ml Ampicillin Sodium 2 gm/ Sodium (Chloride) 100 mls @ 200 mls/hr IV ONETIME ONE Stop: 08/31/18 15:55 Last Admin: 08/31/18 15:27 Dose: 200 mls/hr Ampicillin Sodium 1 gm/ Sodium (Chloride) 100 mls @ 200 mls/hr IV Q4H [facility] Last Admin: 08/31/18 19:14 Dose: Not Given Lactated Ringer's (Ringers, Lactated) 1,000 mls @ 100 mls/hr IV ASDIRECTED [facility] Last Admin: 08/31/18 16:37 Dose: 100 mls/hr Oxytocin/Lactated Ringer's (Pitocin In Lr 10 Units/1,000 Ml) 10 unit in 1,000 mls @ 500 mls/hr IV .CONTINUOUS [facility] Last Admin: 08/31/18 17:48 Dose: 500 mls/hr Lactated Ringer's (Ringers, Lactated) Confirm Administered Dose 1,000 mls @ as directed .ROUTE .STK-MED ONE Stop: 08/31/18 15:27 Last Admin: 08/31/18 15:39 Dose: Not Given Nalbuphine HCl (Nubain) 10 mg IVPUSH Q2H PRN PRN Reason: Pain Ondansetron HCl (Zofran) 4 mg IVPUSH Q4H PRN PRN Reason: Nausea/Vomiting Sodium Chloride (Saline Flush) 10 ml FLUSH ASDIRECTED PRN PRN Reason: Keep Vein Open - Infant Interaction Infant Disposition, : [place] in Room with Family Interaction: Holding Feeding: Bottle Fed Infant Support Person: Sister - Recovery Exam Fundal Tone: Firm Fundal Level: At Umbilicus Fundal Placement: Midline Lochia Amount: Scant, Small Lochia Color: Rubra/Red Episiotomy/Laceration: Approximated Bladder Status: Nonpalpable, Voiding Urinary Elimination: Voided - Exam General: Alert, Oriented, Cooperative GI/Abdominal Exam: Soft, Non-Tender Extremities: Normal Inspection Skin: Warm, Dry, Intact - Problem List & Annotations (1) Currently in third trimester with unknown gestational age SNOMED Code(s): 485897346, 427668522 Code(s): Z34.93 - ENCNTR FOR SUPRVSN OF NORMAL PREG, UNSP, THIRD TRIMESTER Status: Acute Current Visit: Yes (2) No care in current SNOMED Code(s): 810246061 Code(s): O09.30 - SUPRVSN OF PREG W INSUFFICIENT ANTENAT CARE, UNSP TRIMESTER Status: Acute Current Visit: Yes Qualifiers: Trimester: third trimester Qualified Code(s): O09.33 - Supervision of with insufficient care, third trimester (3) History of drug use SNOMED Code(s): 702910361 Code(s): Z87.898 - PERSONAL HISTORY OF OTHER SPECIFIED CONDITIONS Status: Acute Current Visit: Yes (4) Vaginal delivery SNOMED Code(s): 989797805 Code(s): O80 - ENCOUNTER FOR FULL-TERM UNCOMPLICATED DELIVERY Status: Acute Current Visit: Yes - Problem List Review Problem List Initiated/Reviewed/Updated: Yes - My Orders Last 24 Hours: My Active Orders 09/01/18 18:32 Heat Therapy [OM.PC] PRN 09/02/18 02:21 Ready for Discharge [RC] PER UNIT ROUTINE - Assessment Assessment:: 28 y/o G3 now P2 PPD#2 from - Plan Plan:: * Routine cares * Bottle feeding * UDS positive, SW to be involved * Discharge today
--- NOTE | 2018-09-02 09:11 | PCM.DCSUM1 ---
Discharge Summary - Discharge Data Discharge Date: 09/02/18 Discharge Disposition: Home, Self-Care 01 Condition: Good - Discharge Diagnosis/Problem(s) (1) Currently in third trimester with unknown gestational age SNOMED Code(s): 646147226, 167014817 ICD Code: Z34.93 - ENCNTR FOR SUPRVSN OF NORMAL PREG, UNSP, THIRD TRIMESTER Status: Acute Current Visit: Yes (2) No care in current SNOMED Code(s): 371716144 ICD Code: O09.30 - SUPRVSN OF PREG W INSUFFICIENT ANTENAT CARE, UNSP TRIMESTER Status: Acute Current Visit: Yes Qualifiers: Trimester: third trimester Qualified Code(s): O09.33 - Supervision of with insufficient care, third trimester (3) History of drug use SNOMED Code(s): 840490937 ICD Code: Z87.898 - PERSONAL HISTORY OF OTHER SPECIFIED CONDITIONS Status: Acute Current Visit: Yes (4) Vaginal delivery SNOMED Code(s): 257072664 ICD Code: O80 - ENCOUNTER FOR FULL-TERM UNCOMPLICATED DELIVERY Status: Acute Current Visit: Yes - Patient Summary/Data Complications: None Consults: None Recommended Follow-up Testing/Procedures: Follow up in 3 weeks for check Hospital Course: 28 y/o at uncertain gestational age (no care in ) presented in labor. US done and estimated baby to be about 36 weeks gestation. She progressed rapidly to complete dilation and underwent an uncomplicated . See delivery note. Patient was positive for methamphetamine and amphetamine. SW consult placed. Patient was discharged on PPD#2, but planned to board while baby remained in hospital for extended stay - Patient Instructions Diet: Regular Diet as Tolerated Activity: As Tolerated Activity, Other: Pelvic Rest for 6 weeks Driving: May Drive Today Showering/Bathing: May Shower Showering/Bathing, Other: May bathe Notify Provider of: Fever, Increased Pain, Swelling and Redness, Drainage, Nausea and/or Vomiting - Discharge Plan *PRESCRIPTION DRUG MONITORING PROGRAM REVIEWED*: Not Applicable *COPY OF PRESCRIPTION DRUG MONITORING REPORT IN PATIENT SOUTH: Not Applicable Home Medications: Home Meds Vit with Ca/FA/Iron [ Plus Iron] 1 each PO DAILY #100 tablet [Rx] Docusate Sodium [Colace] 100 mg PO BID PRN cap 09/02/18 [Rx] Ibuprofen [Motrin] 600 mg PO Q6H PRN tablet 09/02/18 [Rx] Referrals: Destinee Bell MD [Physician] - (3 weeks for check ) - Discharge Summary/Plan Comment DC Time >30 min.: No - Patient Data Vitals - Most Recent: Last Vital Signs Temp 36.5 C 09/02/18 03:00 Pulse 44 L 09/02/18 03:00 Resp 14 09/02/18 03:00 BP 95/54 L 09/02/18 03:00 Pulse Ox 97 09/02/18 03:00 Weight - Most Recent: 83.915 kg I&O - Last 24 hours: Intake & Output 09/01/18 09/02/18 09/02/18 22:59 06:59 14:59 Intake Total 180 Balance 180 Lab Results - Last 24 hrs: Laboratory Results - last 24 hr 08/31/18 Range/Units 15:30 Group B Strep (PCR) Negative (NEGATIVE) Med Orders - Current: Current Medications Acetaminophen (Tylenol) 650 mg PO Q4H PRN PRN Reason: mild pain or fever Benzocaine/Menthol (Dermoplast Pain Relief [place]) 0 gm TOP ASDIRECTED PRN PRN Reason: Perineal Comfort Measure Last Admin: 09/01/18 00:00 Dose: 1 canister Docusate Sodium (Colace) 100 mg PO BID PRN PRN Reason: Constipation Emollient Ointment (Lansinoh Hpa) 0 gm TOP ASDIRECTED PRN PRN Reason: Sore Nipples Ibuprofen (Motrin) 600 mg PO Q6H PRN PRN Reason: Mild pain or fever Last Admin: 09/01/18 22:22 Dose: 600 mg Witch Sona (Tucks) 1 pad TOP ASDIRECTED PRN PRN Reason: Perineal Comfort Measure Last Admin: 09/01/18 00:00 Dose: 1 container Discontinued Medications Ampicillin Sodium (Ampicillin) Confirm Administered Dose 2 gm IV .STK-MED ONE Stop: 08/31/18 15:27 Last Admin: 08/31/18 15:39 Dose: Not Given Fentanyl (Sublimaze) 100 mcg IVPUSH ONETIME ONE Stop: 08/31/18 16:08 Last Admin: 08/31/18 17:45 Dose: 100 mcg Fentanyl/Bupivacaine HCl (Fentanyl/Bupivacaine/Ns 2 Mcg-0.125% 100 Ml) 100 ml EPIDUR ASDIRECTED [facility] Last Admin: 08/31/18 17:45 Dose: 100 ml Ampicillin Sodium 2 gm/ Sodium (Chloride) 100 mls @ 200 mls/hr IV ONETIME ONE Stop: 08/31/18 15:55 Last Admin: 08/31/18 15:27 Dose: 200 mls/hr Ampicillin Sodium 1 gm/ Sodium (Chloride) 100 mls @ 200 mls/hr IV Q4H [facility] Last Admin: 08/31/18 19:14 Dose: Not Given Lactated Ringer's (Ringers, Lactated) 1,000 mls @ 100 mls/hr IV ASDIRECTED [facility] Last Admin: 08/31/18 16:37 Dose: 100 mls/hr Oxytocin/Lactated Ringer's (Pitocin In Lr 10 Units/1,000 Ml) 10 unit in 1,000 mls @ 500 mls/hr IV .CONTINUOUS [facility] Last Admin: 08/31/18 17:48 Dose: 500 mls/hr Lactated Ringer's (Ringers, Lactated) Confirm Administered Dose 1,000 mls @ as directed .ROUTE .STK-MED ONE Stop: 08/31/18 15:27 Last Admin: 08/31/18 15:39 Dose: Not Given Nalbuphine HCl (Nubain) 10 mg IVPUSH Q2H PRN PRN Reason: Pain Ondansetron HCl (Zofran) 4 mg IVPUSH Q4H PRN PRN Reason: Nausea/Vomiting Sodium Chloride (Saline Flush) 10 ml FLUSH ASDIRECTED PRN PRN Reason: Keep Vein Open
== END 2018-09-02 10:40 | disposition home or self-care (01) | DRG 807 ==
LOC: JD.OBCHECK 15:07 → JD.OB 15:07 → JD.OBCHECK 15:26 → OBSVTOIN 17:44 → JD.OB 17:45
PROVIDERS: ADMIT Obstetrics & Gynecology; ATTEND Obstetrics & Gynecology
PROC: 10E0XZZ Delivery of Products of Conception, External Approach (ICD-10-PCS; principal; 2018-08-31)
PROC: 0UQMXZZ Repair Vulva, External Approach (ICD-10-PCS; 2018-08-31)
DX: O99.334 Smoking (tobacco) complicating childbirth (principal); Z37.0 Single live birth; F17.210 Nicotine dependence, cigarettes, uncomplicated; O70.0 First degree perineal laceration during delivery; O99.324 Drug use complicating childbirth; O99.333 Smoking (tobacco) complicating pregnancy, third trimester; F17.200 Nicotine dependence, unspecified, uncomplicated; F15.10 Other stimulant abuse, uncomplicated; O99.323 Drug use complicating pregnancy, third trimester; Z3A.36 36 weeks gestation of pregnancy
CPT/HCPCS: 36415; 59025; 76815; 80306; 85027; 86592; 86762; 86803; 86850; 86900; 86901; 87340; 87653; G0433; G0480 ×4; J0290; J3490; J7030; J7120 ×2; 01967; 51701; 59409; A9270-GY; J2590; J3010